=== PATIENT | male | born 1945 | race Caucasian/White ===

== ENCOUNTER 2016-11-08 09:14 | Day surgery (SDC) | payer MEDICARE, OTHER ==
[~2016-11-08] VITALS: Ht 170.2 cm; Wt 78.0 kg
[~2016-11-08 09:14] MED LIST: 0.9% Sodium Chloride 1,000 ML IV PRN; ASCO250T7 PO; ATOR10TA66 PO; IBUP200C PO; Sodium Chloride LOK Flush 10 mL Syringe IV PRN; fentaNYL-PF 50 mCg/mL 2 mL Inj IVPUSH PRN
[2016-11-08] MEDS ORDERED: ASPI-973 PO (10:05)
[2016-11-08 10:08] VITALS: BP 133/70; PULSE 56; RESP 12; O2SAT 98
--- NOTE | 2016-11-08 11:28 | PCM.ENDCOL ---
Colonoscopy Date of Service: November 08, 2016 Physician Justin Allen MD Pre Procedure Diagnosis: Screening Post Procedure Dx & Findings: Polyp hemorrhoids diverticula Procedure Colonoscopy PROCEDURE IN DETAIL: Prep adequate Withdrawal time 10 minutes After unremarkable rectal examination the Olympus video colonoscope was inserted patient's anal canal and was advanced to cecum. Landmarks were identified including the ileocecal valve and appendiceal orifice. Scope was withdrawn systematically. Visualized colonic mucosa showed healthy shiny mucosa with normal healthy-appearing vasculature. In the cecum there was a 1 mm polyp which was removed completely using cold forceps. In the ascending colon there was a 2-3 mm polyp which is removed completely using cold snare. In the right colon there a few small diverticuli. In the rectum retroflexion was done which showed hemorrhoids. Anal canal was inspected carefully on the way out and hemorrhoids noted. Impression Polyp 2 status post complete removal Diverticuli Hemorrhoids Recommendation Repeat colonoscopy in 5 years. Diverticular diet Presedation Assessment Risks and Benefits Informed consent was obtained from the patient after all risks and benefits including but not limited to drug reaction, infection, pain, bleeding, perforation, as well as alternatives were discussed. Patient monitoring Continuous pulse oximetry, cardiac monitoring, blood pressure monitoring, IV access, and oxygen at 2L per nasal cannula. Periprocedural Fentanyl: Fentanyl 50mcg Incrementally Midazolam: Midazolam 2mg Incrementally Complications There were no periprocedural complications identified. Post Procedure Plan Post Procedure Recommendations 1. Restrict activities today. 2. Resume normal activities in the morning. 3. Resume medications. 4. Patient informed of normal post procedure side effects as bloating, drowsiness, blood streaking in the stool. 5. average risk CRCS. If colon polyps come back as: -Hyperplastic- can repeat colonoscopy in 10 years -Tubular adenoma- repeat colonoscopy in 5 years -Tubulovillous/villous adenoma- repeat colonoscopy in 3 years -If any dysplasia- return to clinic as soon as possible 6. Please don't hesitate to call me with any questions. Justin Allen MD November 08, 2016 11:28
[2016-11-08 11:32] VITALS: BP 128/75; PULSE 56; RESP 16; O2SAT 98
[2016-11-08 11:46] VITALS: BP 138/76; PULSE 53; RESP 16; O2SAT 96
[2016-11-08 11:53] VITALS: BP 124/65; PULSE 62; RESP 16; O2SAT 97
--- NOTE | 2016-11-09 11:24 | PATH ---
SURGICAL PATHOLOGY Attending Physician:Justin Allen M.D. CASE STATUS: Signed Out PATIENT NAME: LEOBARDO JEFFERSON PID: [id number] : 1945 DATE COLLECTED:11/08/2016 20:51 SPECIMEN: 1: Colon, Biopsy 2: Colon, Biopsy CLINICAL HISTORY: 1). CECUM POLYP 2). ASCENDING COLON POLYP FINAL DIAGNOSIS: 1.CECUM POLYP: TUBULAR ADENOMA. 2.ASCENDING COLON POLYP: TUBULAR ADENOMA. ICD10 CODE D12.0 GROSS DESCRIPTION: The specimen is received in two formalin filled containers labeled with the patient's name. 1). The specimen is sublabeled "cecum polyp" and consists of a 0.3 x 0.2 x 0.2 CM portion of tissue which is entirely submitted in cassette 1A. 2). The specimen is sublabeled "ascending colon polyp" and consists of a 0.3 x 0.3 x 0.2 CM portion of tissue which is entirely submitted in cassette 2A. 11/08/2016 DAC MICRO DESCRIPTION: See diagnosis. ICD-9 CODES: CPT CODES: 1: 63360 2: 09768 Electronically Signed Out Antonio Kennedy MD [facility] [address], [place] [address] Technical component performed at [facility], [facility] [address], [place], [address]
== END 2016-11-08 23:59 | disposition home or self-care (01) ==
LOC: END 09:14
PROVIDERS: ATTEND Internal Medicine
DX: Z12.11 Encounter for screening for malignant neoplasm of colon (principal); D12.0 Benign neoplasm of cecum; D12.2 Benign neoplasm of ascending colon; K57.30 Diverticulosis of large intestine without perforation or abscess without bleeding; K64.8 Other hemorrhoids; Z83.71 Family history of colonic polyps; E78.5 Hyperlipidemia, unspecified
CPT/HCPCS: 45380; 45385; 88305; G0500; J7030